=== PATIENT | female | born 1955 | race Caucasian/White ===

== ENCOUNTER 2022-02-25 15:57 | Emergency (ER) | payer MEDICARE, MEDICAID ==
[~2022-02-25] VITALS: Ht 162.6 cm; Wt 79.8 kg
[2022-02-25 16:07] VITALS: BP_SYST 156
--- NOTE | 2022-02-25 16:07 | NUR ---
Patient to ER bed 05 to gown for evaluation. Side rails up.
--- NOTE | 2022-02-25 16:30 | NUR ---
Dr Ibanez evaluating patient at bedside
[2022-02-25] MEDS ORDERED: TRAM50TA PO (17:22)
--- NOTE | 2022-02-25 17:30 | NUR ---
A/OX4 VSS VERBALIZED UNDERSTANDING OF DC INSTRUCTIONS, ALL QUESTIONS ANSWERED
[2022-02-25 17:33] VITALS: BP_SYST 156
--- NOTE | 2022-02-25 17:34 | NUR ---
Patient given written and verbal discharge instructions and verbalizes understanding. ER MD discussed with patient the results and treatment provided. Patient in stable condition. ID arm band removed. Rx of Tramadol given. Patient educated on pain management and to follow up with PMD. Pain Scale 3/10 Opportunity for questions provided and answered. Medication side effect fact sheet provided.
--- NOTE | 2022-02-25 17:46 | NUR ---
DR MCCLELLAN CALLED UPSET THAT THE PT DIDNT GET ANY XRAYS DONE, STATED IF HE SENDS THE PT SOMEWHERE AND THEY FIND SOMETHING THEN I MAKES THE HOSPITAL LOOKS BAD.
== END 2022-02-25 17:33 | disposition home or self-care (01) ==
LOC: SED 15:57
DX: M17.0 Bilateral primary osteoarthritis of knee (principal); Z79.899 Other long term (current) drug therapy
CPT/HCPCS: 99283